=== PATIENT | male | born 1950 | race Caucasian/White ===

== ENCOUNTER → 2022-07-08 10:56 | Outpatient (BNVA) | payer MEDICARE, BC, SELFPAY | PROVIDERS: PCP Internal Medicine; Visit Provider Psychiatry & Neurology Psychiatry | DX: F31.81 Bipolar II disorder (principal); Z63.0 Problems in relationship with spouse or partner; Z95.1 Presence of aortocoronary bypass graft | CPT/HCPCS: 99212 ==

== ENCOUNTER → 2022-09-16 12:14 | Outpatient (BNVA) | payer MEDICARE, BC, SELFPAY | PROVIDERS: Visit Provider Psychiatry & Neurology Psychiatry | DX: F31.81 Bipolar II disorder (principal) | CPT/HCPCS: 90833; 99212 ==

== ENCOUNTER → 2022-11-13 13:35 | Outpatient (BNVA) | payer MEDICARE, BC, SELFPAY | PROVIDERS: Visit Provider Psychiatry & Neurology Psychiatry | DX: F31.81 Bipolar II disorder (principal); F10.21 Alcohol dependence, in remission; Z95.1 Presence of aortocoronary bypass graft | CPT/HCPCS: 90833; 99212 ==

== ENCOUNTER 2023-02-03 11:50 | Outpatient (AMB) | payer MEDICARE, BC, SELFPAY ==
--- NOTE | 2023-02-03 12:22 | MHC.OFFVISPS ---
Intake Intake Visit Reasons: Management of bipolar disorder, depression, Marital stress Allergies lorazepam Adverse Reaction (Intermediate, Verified 11/13/22 13:48) Agitated HPI- Psychiatric Chief Complaint: Management of bipolar disorder, depression, Marital stress HPI Narrative: Pt has generally been doing pretty well had emotional fight with yesterday on their anniversary Patient has chronic interpersonal issues with his the can lead to depressive symptoms there is a history of bipolar 2 history of rumination and anxiety the patient felt that he may have had some mild hypomanic period. Reports periods of perhaps mild dysphoria some working attentional problems since bypass surgery questionable hypomania not very clear regarding symptoms Past Psychiatric History: History of bipolar disorder was on lithium and Trileptal previously Mental Status Exam Mental Status Exam Narrative: Mental Status Exam Narrative: Appearance: Casually dressed Behavior: Cooperative appropriate psychomotor: Within normal limits Speech: Normal volume and prosody Thought proccess logical and goal-directed Thought content: Future oriented focused on issues related to his Mood: mild anxiety Affect: Appropriate to mood some anxiety rumination SI:denies HI:denies VH/AH:none Delusions: None Insight/judgment: Tends to downplay medical issues pituitary macroadenoma noted Memory/cog: Intact Assessment and Plan Assessment & Plan (1) Bipolar 2 disorder, major depressive episode: Status: Acute Code(s): F31.81 - Bipolar II disorder (2) Status post coronary artery bypass graft: Status: Acute Code(s): Z95.1 - Presence of aortocoronary bypass graft (3) Stress due to marital problems: Code(s): Z63.0 - Problems in relationship with spouse or partner (4) Cognitive impairment: Status: Acute Code(s): R41.89 - Other symptoms and signs involving cognitive functions and awareness (5) Hypertension: Status: Acute Code(s): I10 - Essential (primary) hypertension (6) Coronary artery disease: Status: Acute Code(s): I25.10 - Atherosclerotic heart disease of [place] coronary artery without angina pectoris (7) Pituitary macroadenoma: Status: Acute Code(s): D35.2 - Benign neoplasm of pituitary gland (8) Hyperlipidemia: Status: Acute Code(s): E78.5 - Hyperlipidemia, unspecified Plan Encourage patient to follow-up with medical issues might benefit from neuropsych evaluation but should definitely have Neurology follow-up pituitary macroadenoma some small lacunar infarct noted on MRI mild cognitive impairment might be related to bypass surgery executive functioning next and general memory seem intact could be seen by Dr. Gutierrez for more extensive neuropsych eval unclear if patient has had further workup for adenoma consider restarting small dose of oxcarbazepine at bedtime would need to follow sodium Orders: Orders Lamotrigine Lamictal 02/03/23 F31.81 - Bipolar II disorder, R41.89 - Other symptoms and signs involving cognitive functions and awareness, Z95.1 - Presence of aortocoronary bypass graft Comprehensive [place]. Panel Fast 02/03/23 F31.81 - Bipolar II disorder, R41.89 - Other symptoms and signs involving cognitive functions and awareness, Z95.1 - Presence of aortocoronary bypass graft Vitamin B12 and Folate 02/03/23 F3.81 - Bipolar II disorder, R41.89 - Other symptoms and signs involving cognitive functions and awareness, Z95.1 - Presence of aortocoronary bypass graft Complete Blood Count Auto Diff 02/03/23 F31.81 - Bipolar II disorder, R41.89 - Other symptoms and signs involving cognitive functions and awareness, Z95.1 - Presence of aortocoronary bypass graft Erythrocyte Sedimentation Rate 02/03/23 F31.81 - Bipolar II disorder, R41.89 - Other symptoms and signs involving cognitive functions and awareness, Z95.1 - Presence of aortocoronary bypass graft Lyme IgG/IgM w/reflex to WB 02/03/23 F31.81 - Bipolar II disorder, R41.89 - Other symptoms and signs involving cognitive functions and awareness, Z95.1 - Presence of aortocoronary bypass graft Prolactin Today D35.2 - Benign neoplasm of pituitary gland, F31.81 - Bipolar II disorder, R41.89 - Other symptoms and signs involving cognitive functions and awareness TSH reflex Free T4 Today D35.2 - Benign neoplasm of pituitary gland, F31.81 - Bipolar II disorder, R41.89 - Other symptoms and signs involving cognitive functions and awareness Counseling and coordination of Care Details: I spent [] minutes reviewing the record, seeing the patient and documenting in the medical record. Counseling provided to the patient/caregiver as outlined below. Addressed patient/caregiver concerns regarding current medication regime including effective adherence. Addressed patient/caregiver concerns regarding diagnosis and prognosis including accuracy of diagnosis, prognosis over time, impact of diagnosis. Addressed patient/caregiver concerns regarding impact of recent stressors. 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
== END 2023-02-03 14:20 | disposition home or self-care (01) ==
LOC: HO.HOP 11:50
PROVIDERS: PCP Nurse Practitioner Primary Care; Visit Provider Psychiatry & Neurology Psychiatry
DX: F31.81 Bipolar II disorder (principal); Z95.1 Presence of aortocoronary bypass graft; Z63.0 Problems in relationship with spouse or partner; R41.89 Other symptoms and signs involving cognitive functions and awareness; I10 Essential (primary) hypertension; I25.10 Atherosclerotic heart disease of native coronary artery without angina pectoris; D35.2 Benign neoplasm of pituitary gland; E78.5 Hyperlipidemia, unspecified
CPT/HCPCS: 90833; 99213

== ENCOUNTER → 2023-02-03 11:50 | Outpatient (BNVA) | payer MEDICARE, BC, SELFPAY | PROVIDERS: PCP Nurse Practitioner Primary Care; Visit Provider Psychiatry & Neurology Psychiatry | DX: F31.81 Bipolar II disorder (principal); R41.89 Other symptoms and signs involving cognitive functions and awareness; Z63.0 Problems in relationship with spouse or partner; I10 Essential (primary) hypertension; I25.10 Atherosclerotic heart disease of native coronary artery without angina pectoris; D35.2 Benign neoplasm of pituitary gland; E78.5 Hyperlipidemia, unspecified; Z95.1 Presence of aortocoronary bypass graft | CPT/HCPCS: 90833; 99212 ==

== ENCOUNTER 2023-03-04 11:19 | Outpatient (AMB) | payer MEDICARE, BC, SELFPAY ==
--- NOTE | 2023-04-23 16:11 | A.OFFPSYCH_ITS ---
Intake Intake Visit Reasons: cognitive testing Allergies lorazepam Adverse Reaction (Intermediate, Verified 11/13/22 13:48) Agitated HPI- Psychiatric Chief Complaint: cognitive testing HPI Narrative: The patient is a 73-year-old male history of bipolar disorder recent history question of some hypomania had been drinking at bedtime despite recommendations to not drink alcohol. Patient has described periods of mild word-finding difficulty and difficulty at times with short-term memory the patient did have bypass over the past year a also on MRI history of macroadenoma Past Psychiatric History: History of bipolar disorder was on lithium and Trileptal previously Mental Status Exam Mental Status Exam Narrative: Mental Status Exam Narrative: Appearance: Casually dressed Behavior: Cooperative appropriate psychomotor: Within normal limits Speech: Normal volume and prosody Thought proccess logical and goal-directed Thought content: Future oriented focused on issu Mood: mild anxiety and dysphoria Affect: Appropriate to mood some anxiety rumination SI:denies HI:denies VH/AH:none Delusions: None Insight/judgment: Tends to downplay medical issues pituitary macroadenoma Memory/cog: No gross abn on testing Assessment and Plan Assessment & Plan (1) Bipolar 2 disorder, major depressive episode: Status: Acute Code(s): F31.81 - Bipolar II disorder (2) Pituitary macroadenoma: Status: Acute Code(s): D35.2 - Benign neoplasm of pituitary gland (3) Hypertension: Status: Acute Code(s): I10 - Essential (primary) hypertension (4) Cognitive impairment: Status: Acute Code(s): R41.89 - Other symptoms and signs involving cognitive functions and awareness (5) Status post coronary artery bypass graft: Status: Acute Code(s): Z95.1 - Presence of aortocoronary bypass graft Plan Will consider further neuropsych testing question Jean cognitive question need for referral. Patient status post coronary artery bypass graft surgery also has but to a Thuy adenoma unclear levels and affect. Need further information Lamictal had been increased to 150 b.i.d. avoid alcohol use reportedly B12 folate TSH are within normal limits. Counseling and coordination of Care Pt. Self Management counseling: Breathing and Mod caffeine/ETOH intake Details-Self Mgmt counseling: Also discussed issues related to chronic dissatisfaction his relationship with his he tends to be a intellectualized she tends to have more emotional reasoning feels overwhelmed at times Medication management counseling: Effectiveness Diagnosis and Prognosis Counseling: Accuracy of diagnosis, Impact of diagnosis on life functions, Problematic behaviors secondary to diagnosis and Adequacy of current interventions Details: I spent [35] minutes reviewing the record, seeing the patient and documenting in the medical record. Counseling provided to the patient/caregiver as outlined below. Addressed patient/caregiver concerns regarding current medication regime including effective adherence. Addressed patient/caregiver concerns regarding diagnosis and prognosis including accuracy of diagnosis, prognosis over time, impact of diagnosis. Addressed patient/caregiver concerns regarding impact of recent stressors. 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
== END 2023-03-04 14:39 | disposition home or self-care (01) ==
LOC: HO.HOP 11:19
PROVIDERS: PCP Nurse Practitioner Primary Care; Visit Provider Psychiatry & Neurology Psychiatry
DX: F31.81 Bipolar II disorder (principal); D35.2 Benign neoplasm of pituitary gland; I10 Essential (primary) hypertension; R41.89 Other symptoms and signs involving cognitive functions and awareness; Z95.1 Presence of aortocoronary bypass graft
CPT/HCPCS: 99214

== ENCOUNTER → 2023-03-04 11:19 | Outpatient (BNVA) | payer MEDICARE, BC, SELFPAY | PROVIDERS: PCP Nurse Practitioner Primary Care; Visit Provider Psychiatry & Neurology Psychiatry | DX: F31.81 Bipolar II disorder (principal); R41.89 Other symptoms and signs involving cognitive functions and awareness; D35.1 Benign neoplasm of parathyroid gland; I10 Essential (primary) hypertension; Z95.1 Presence of aortocoronary bypass graft | CPT/HCPCS: 99212 ==

== ENCOUNTER 2023-07-11 12:38 | Outpatient (REF) | payer MEDICARE, BC, SELFPAY ==
[2023-07-11 14:48] LABS: Alanine Aminotransferase 41 U/L (0-40); Albumin Level 4.6 g/dL (3.5-5.0); Alkaline Phosphatase 61 U/L (39-117); Anion Gap 14 (12-20); Aspartate Amino Transferase 45 U/L (5-37); Bilirubin Total 0.7 mg/dL (0.0-1.0); Blood Urea Nitrogen 21 mg/dL (9-16); Calcium 9.7 mg/dL (8.4-10.2); Carbon Dioxide 26 mmol/L (22-29); Chloride 107 mmol/L (96-108); Estimated Glomerular Filt Rate 51; Glucose Random 97 mg/dL (60-115); Potassium 3.7 mmol/L (3.3-5.1); Sodium 143 mmol/L (135-145); Total Protein 7.8 g/dL (6.5-8.0)
== END 2023-07-11 12:39 | disposition home or self-care (01) ==
LOC: HO.LAB 12:38
PROVIDERS: PCP Nurse Practitioner Primary Care; Visit Provider Psychiatry & Neurology Psychiatry
DX: R41.89 Other symptoms and signs involving cognitive functions and awareness (principal)
CPT/HCPCS: 36415; 80053

== ENCOUNTER 2023-09-19 11:23 | Outpatient (AMB) | payer MEDICARE, BC, SELFPAY ==
--- NOTE | 2023-09-19 12:22 | A.OFFPSYCH_ITS ---
Intake Intake Visit Reasons: depression Allergies lorazepam Adverse Reaction (Intermediate, Verified 11/13/22 13:48) Agitated HPI- Psychiatric Chief Complaint: depression HPI Narrative: Patient seen psychiatric follow-up. Has had some interim difficulty with short- term memory at times driving that is uncharacteristic of him generally. Patient's has been quite concerned he need also recently had a interaction in which his felt quite not taking care by him. They have some degree of chronic discord he tends to be more intellectualized his tends to be more of an emotional thinker least according to the patient Past Psychiatric History: History of bipolar disorder was on lithium and Trileptal previously Mental Status Exam Mental Status Exam Narrative: Mental Status Exam Narrative: Appearance: Casually dressed Behavior: Cooperative appropriate psychomotor: Within normal limits Speech: Normal volume and prosody Thought proccess logical and goal-directed Thought content: focused on conflictual issues with his and recent diffi culties he had driving and memory He is also preoccupied feeling frequently criticized Mood: mild anxiety and dysphoria Affect: Appropriate to mood some anxiety rumination SI:denies HI:denies VH/AH:none Delusions: None Insight/judgment: Tends to downplay medical issues pituitary macroadenoma Memory/cog: No gross abn on testing Assessment and Plan Assessment & Plan (1) Bipolar 2 disorder, major depressive episode: Status: Acute Code(s): F31.81 - Bipolar II disorder (2) Coronary artery disease: Status: Acute Code(s): I25.10 - Atherosclerotic heart disease of [place] coronary artery without angina pectoris (3) Cognitive impairment: Status: Acute Code(s): R41.89 - Other symptoms and signs involving cognitive functions and awareness Plan Try and taper down on clonazepam may be i nterfering with encoding of memory interfering when driving perhaps with working attention at times try and discontinue daytime clonazepam continue Wellbutrin and Lamictal Extensive discussion regarding risk factors for dementia including vascular, d iabetes, smoking, alcohol hypertension and vitamin deficiencies recommended neuropsych testing again Patient's current difficulties may be related to marital stress with frequent criticism and cognitive impairment that became observable status post coronary bypass Continue Lamictal 150 b.i.d. Wellbutrin 100 mg daily try and taper down on clonazepam currently a 0.5 b.i.d. lowered is 0.25 in the morning 0.5 bedtime continue gradual taper Medications: Changed From clonazepam 0.5 mg PO BID 60 tabs 2RF To clonazepam o.25 am prn 0.5 hs 0.25 - 0.5 mg (0.5 - 1 x 0.5 mg) PO BID 60 tabs 2RF Counseling and coordination of Care Details-Self Mgmt counseling: Issues related to concerns regarding cognition and management and issues related to chronic stress and anxiety in his marriage discussed ways to approach someone who is speaking a an emotional level Medication management counseling: Effectiveness and Side effects Diagnosis and Prognosis Counseling: Accuracy of diagnosis and Problematic behaviors secondary to diagnosis Details: I spent [40] minutes reviewing the record, seeing the patient and documenting in the medical record. Counseling provided to the patient/caregiver as outlined below. Addressed patient/caregiver concerns regarding current medication regime including effective adherence. Addressed patient/caregiver concerns regarding diagnosis and prognosis including accuracy of diagnosis, prognosis over time, impact of diagnosis. Addressed patient/caregiver concerns regarding impact of recent stressors. 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
== END 2023-09-19 12:11 | disposition home or self-care (01) ==
LOC: HO.HOP 11:23
PROVIDERS: PCP Nurse Practitioner Primary Care; Visit Provider Psychiatry & Neurology Psychiatry
DX: F31.81 Bipolar II disorder (principal); I25.10 Atherosclerotic heart disease of native coronary artery without angina pectoris; R41.89 Other symptoms and signs involving cognitive functions and awareness
CPT/HCPCS: 90833; 99213

== ENCOUNTER → 2023-09-19 11:23 | Outpatient (BNVA) | payer MEDICARE, BC, SELFPAY | PROVIDERS: PCP Nurse Practitioner Primary Care; Visit Provider Psychiatry & Neurology Psychiatry | DX: F31.81 Bipolar II disorder (principal); I25.10 Atherosclerotic heart disease of native coronary artery without angina pectoris; R41.89 Other symptoms and signs involving cognitive functions and awareness | CPT/HCPCS: 99212 ==

== ENCOUNTER 2023-11-06 12:01 | Outpatient (AMB) | payer MEDICARE, BC, SELFPAY ==
--- NOTE | 2023-11-06 12:50 | MHC.OFFVISPS ---
Intake Intake Visit Reasons: depression Allergies lorazepam Adverse Reaction (Intermediate, Verified 11/13/22 13:48) Agitated Medication List - Last Reconciled 11/06/23 by Nnamdi Ibarra MD atorvastatin 80 mg PO DAILY bupropion HCl SR (Wellbutrin SR) 100 mg PO QAM clonazepam orally 2 times a day; o.25 am prn anxiety/ 0.5 hs 90 days ezetimibe 10 mg PO DAILY lamotrigine (Lamictal) 150 mg PO BID lamotrigine 150 mg PO BID 90 days Lmefol [id number] 6 mg-600 mg- 2 mg-90.314 mg (Cerefolin NAC (algal oil)) 1 tab PO DAILY metoprolol tartrate 50 mg PO BID mirabegron ER (Myrbetriq) 50 mg PO DAILY pantoprazole 40 mg PO DAILY HPI- Psychiatric Chief Complaint: depression HPI Narrative: Patient has generally been doing okay does tend toward rumination difficulty chronically with on emotional interplay versus using logic and both seem to trigger each other and missed each other. His children have been intervening to some degree this appears to have been helpful neuropsych testing reviewed no marked abnormalities patient has not been using CPAP no gross changes in functioning or mood no alcohol use has tapered down on clonazepam generally not using during the day only 0.5 mg at bedtime continues on Wellbutrin Lamictal Past Psychiatric History: History of bipolar disorder was on lithium and Trileptal previously Mental Status Exam Mental Status Exam Narrative: Mental Status Exam Narrative: Appearance: Casually dressed Behavior: Cooperative appropriate psychomotor: Within normal limits Speech: Normal volume and prosody Thought proccess logical and goal-directed Thought content: focused on conflictual issues with his but feels they are improving children have been helping Mood: mild anxiety and dysphoria Affect: Appropriate to mood some anxiety SI:denies HI:denies VH/AH:none Delusions: None Insight/judgment: Difficulty seeing how he comes across to his and necessity of dealing with medical concerns Memory/cog: No gross abn in evaluation alert and oriented logical Results Reviewed Results Reviewed: Reviewed neuropsych testing with patient see upload Assessment and Plan Assessment & Plan (1) Bipolar 2 disorder, major depressive episode: Status: Acute Code(s): F31.81 - Bipolar II disorder (2) Cognitive impairment: Status: Acute Code(s): R41.89 - Other symptoms and signs involving cognitive functions and awareness (3) Vitamin D deficiency, unspecified: Status: Acute Code(s): E55.9 - Vitamin D deficiency, unspecified (4) Hyperlipidemia: Status: Acute Code(s): E78.5 - Hyperlipidemia, unspecified Plan Patient's case reviewed neuropsychology they did feel that much of his difficulty might relate to post bypass cognitive issues. His children have been helpful in helping patient manage chronic issues with his trying to find a more constructive way to log. Patient has not been getting lost or driving erratically or unstable early reportedly did discuss the impact of untreated sleep apnea and periods of low oxygen at night which may be contributing to cognitive issues. Discussed the possibility an apple watch or other oxygen monitoring device when asleep and to strongly consider targeting sleep apnea which can be a significant contributing factor to both heart disease and cognitive issues. Discussed use of Cerefolin which was recommended by neuro psychology continue did try and taper down on clonazepam check lipid panel Homocystine vitamin-D methylmalonic acid start Cerefolin which may help with cognitive protective health in a with mood Patient's cognitive and emotional style does not jive well with his 's who tends to have more of an emotional style try to review this patient's just and made Medications: New Lmefol [id number]-algal 6 mg-600 mg- 2 mg-90.314 mg (Cerefolin NAC (algal oil)) 1 tab PO DAILY 90 tabs 1RF Changed From clonazepam o.25 am prn 0.5 hs 0.25 - 0.5 mg (0.5 - 1 x 0.5 mg) PO BID 60 tabs 2RF To clonazepam orally 2 times a day; o.25 am prn anxiety/ 0.5 hs 135 tabs 1RF 90 days Orders: Orders Vitamin D 25-OH (D2 and D3) 11/06/23 R41.89 - Other symptoms and signs involving cognitive functions and awareness, E55.9 - Vitamin D deficiency, unspecified Lipid Panel 11/06/23 E78.5 - Hyperlipidemia, unspecified Homocysteine 11/06/23 R41.89 - Other symptoms and signs involving cognitive functions and awareness, E55.9 - Vitamin D deficiency, unspecified Methylmalonic Acid 11/06/23 R41.89 - Other symptoms and signs involving cognitive functions and awareness, E55.9 - Vitamin D deficiency, unspecified Counseling and coordination of Care Diagnosis and Prognosis Counseling: Impact of diagnosis on life functions and Adequacy of current interventions Details: I spent [50] minutes reviewing the record, seeing the patient and documenting in the medical record. Counseling provided to the patient/caregiver as outlined below. Addressed patient/caregiver concerns regarding current medication regime including effective adherence. Addressed patient/caregiver concerns regarding diagnosis and prognosis including accuracy of diagnosis, prognosis over time, impact of diagnosis. Addressed patient/caregiver concerns regarding impact of recent stressors. 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
--- NOTE | 2023-11-07 12:09 | A.OFFPSYCH_ITS ---
Intake Intake Visit Reasons: depression Allergies lorazepam Adverse Reaction (Intermediate, Verified 11/13/22 13:48) Agitated Medication List - Last Reconciled 11/06/23 by Nnamdi Ibarra MD atorvastatin 80 mg PO DAILY bupropion HCl SR (Wellbutrin SR) 100 mg PO QAM clonazepam orally 2 times a day; o.25 am prn anxiety/ 0.5 hs 90 days ezetimibe 10 mg PO DAILY lamotrigine (Lamictal) 150 mg PO BID lamotrigine 150 mg PO BID 90 days Lmefol Qg-hybosn-jiF78-algal 6 mg-600 mg- 2 mg-90.314 mg (Cerefolin NAC (algal oil)) 1 tab PO DAILY metoprolol tartrate 50 mg PO BID mirabegron ER (Myrbetriq) 50 mg PO DAILY pantoprazole 40 mg PO DAILY HPI- Psychiatric Chief Complaint: depression HPI Past Psychiatric History: History of bipolar disorder was on lithium and Trileptal previously Assessment and Plan Assessment & Plan Medications: New Lmefol Bc-zofyhv-icN34-algal 6 mg-600 mg- 2 mg-90.314 mg (Cerefolin NAC (algal oil)) 1 tab PO DAILY 90 tabs 1RF Changed From clonazepam o.25 am prn 0.5 hs 0.25 - 0.5 mg (0.5 - 1 x 0.5 mg) PO BID 60 tabs 2RF To clonazepam orally 2 times a day; o.25 am prn anxiety/ 0.5 hs 135 tabs 1RF 90 days Orders: Orders Vitamin D 25-OH (D2 and D3) 11/06/23 R41.89 - Other symptoms and signs involving cognitive functions and awareness, E55.9 - Vitamin D deficiency, unspecified Lipid Panel 11/06/23 E78.5 - Hyperlipidemia, unspecified Homocysteine 11/06/23 R41.89 - Other symptoms and signs involving cognitive functions and awareness, E55.9 - Vitamin D deficiency, unspecified Methylmalonic Acid 11/06/23 R41.89 - Other symptoms and signs involving cognitive functions and awareness, E55.9 - Vitamin D deficiency, unspecified Counseling and coordination of Care Details: I spent [] minutes reviewing the record, seeing the patient and documenting in the medical record. Counseling provided to the patient/caregiver as outlined below. Addressed patient/caregiver concerns regarding current medication regime including effective adherence. Addressed patient/caregiver concerns regarding diagnosis and prognosis including accuracy of diagnosis, prognosis over time, impact of diagnosis. Addressed patient/caregiver concerns regarding impact of recent stressors. 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
== END 2023-11-06 14:42 | disposition home or self-care (01) ==
LOC: HO.HOP 12:01
PROVIDERS: PCP Nurse Practitioner Primary Care; Visit Provider Psychiatry & Neurology Psychiatry
DX: F31.81 Bipolar II disorder (principal); R41.89 Other symptoms and signs involving cognitive functions and awareness; E55.9 Vitamin D deficiency, unspecified; E78.5 Hyperlipidemia, unspecified
CPT/HCPCS: 90833; 99213

== ENCOUNTER 2023-11-06 12:01 | Outpatient (REF) | payer MEDICARE, BC, SELFPAY ==
[2023-11-06 13:57] LABS: Cholesterol 134 mg/dL (<200); HDL Cholesterol 46 mg/dL (>40); LDL Cholesterol Calculated 67 mg/dL (<100); Triglycerides 108 mg/dL (<150)
[2023-11-07 17:33] LABS: Homocysteine 14.8 umol/L (<11.4)
[2023-11-10 14:09] LABS: Vitamin D 25-OH, D2 <4 ng/mL; Vitamin D 25-OH, D3 40 ng/mL; Vitamin D 25-OH, Total 40 ng/mL (30-100)
[2023-11-10 17:57] LABS: Methylmalonic Acid 214 nmol/L (87-318)
== END 2023-11-06 12:02 | disposition home or self-care (01) ==
LOC: HO.LAB 12:01
PROVIDERS: PCP Nurse Practitioner Primary Care; Visit Provider Psychiatry & Neurology Psychiatry
DX: R41.89 Other symptoms and signs involving cognitive functions and awareness (principal); E55.9 Vitamin D deficiency, unspecified; E78.5 Hyperlipidemia, unspecified; F31.81 Bipolar II disorder
CPT/HCPCS: 36415; 80061; 82306; 83090; 83921; 99212

== ENCOUNTER 2024-03-12 10:31 | Outpatient (AMB) | payer MEDICARE, BC, SELFPAY ==
--- NOTE | 2024-03-12 10:39 | A.OFFPSYCH_ITS ---
Intake Intake Visit Reasons: Depression Allergies lorazepam Adverse Reaction (Intermediate, Verified 11/13/22 13:48) Agitated HPI- Psychiatric Chief Complaint: Depression HPI Narrative: Pt is a 74 yo male hx of bipolar dx continues to have difficulty in relationship with here feels not seen in the level of despair between the 2 of them has recently been escalating. There has even been talk of divorce. Patient tends to be on emotional not revealing his internal life might be autistic spectrum his tends to be according to the patient much more emotionally reactive and hot headed. They have been in couples counseling in the past which reportedly was not helpful unclear was targeting the above interaction Patient has been on Wellbutrin Lamictal very low-dose clonazepam no confusional states no altered driving episode. Past Psychiatric History: History of bipolar disorder was on lithium and Trileptal previously Mental Status Exam Mental Status Exam Narrative: Mental Status Exam Narrative: Appearance: Casually dressed Behavior: Cooperative appropriate psychomotor: Within normal limits Speech: Normal volume and prosody Thought proccess logical and goal-directed Thought content: focused on conflictual issues with his ongoing Mood: anxiety and depressive sx Affect: Appropriate to mood some anxiety SI:denies HI:denies VH/AH:none Delusions: None Insight/judgment: unclear regarding marriage and approaches toward his Memory/cog: No gross abn in evaluation alert and oriented logical Assessment and Plan Assessment & Plan (1) Bipolar 2 disorder, major depressive episode: Status: Acute Code(s): F31.81 - Bipolar II disorder Plan generally only takes klonapin hs no confusional states phq 9 5 but pt has periods of dysphoria discussed couples tx focused on empathycont on wellbutrin lamictal consider vraylar Medications: Changed From clonazepam orally as directed; 0.25 mg am prn anxiety/ 0.5 hs 90 days 135 tabs 1RF To clonazepam 0.25 mg (1/2 x 0.5 mg) PO BID 90 days 90 tabs 1RF Counseling and coordination of Care Details-Self Mgmt counseling: issues in the marriage Medication management counseling: Effectiveness and Side effects Diagnosis and Prognosis Counseling: Adequacy of current interventions Details: I spent 38] minutes reviewing the record, seeing the patient and documenting in the medical record. Counseling provided to the patient/caregiver as outlined below. Addressed patient/caregiver concerns regarding current medication regime including effective adherence. Addressed patient/caregiver concerns regarding diagnosis and prognosis including accuracy of diagnosis, prognosis over time, impact of diagnosis. Addressed patient/caregiver concerns regarding impact of recent stressors. 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
== END 2024-03-12 11:07 | disposition home or self-care (01) ==
LOC: HO.HOP 10:31
PROVIDERS: PCP Nurse Practitioner Primary Care; Visit Provider Psychiatry & Neurology Psychiatry
DX: F31.81 Bipolar II disorder (principal)
CPT/HCPCS: 90833; 99213

== ENCOUNTER → 2024-03-12 10:31 | Outpatient (BNVA) | payer MEDICARE, BC, SELFPAY | PROVIDERS: PCP Nurse Practitioner Primary Care; Visit Provider Psychiatry & Neurology Psychiatry | DX: F31.81 Bipolar II disorder (principal) | CPT/HCPCS: 99212 ==

== ENCOUNTER 2024-06-21 13:33 | Outpatient (AMB) | payer MEDICARE, BC, SELFPAY ==
--- NOTE | 2024-06-21 14:27 | A.OFFPSYCH_ITS ---
Intake Intake Visit Reasons: Depression Allergies lorazepam Adverse Reaction (Intermediate, Verified 11/13/22 13:48) Agitated Medication List - Last Reconciled 06/21/24 by Nnamdi Ibarra MD atorvastatin 80 mg PO DAILY bupropion HCl SR 100 mg PO DAILY 90 days clonazepam 0.25 mg (1/2 x 0.5 mg) PO BID 90 days ezetimibe 10 mg PO DAILY lamotrigine (Lamictal) 150 mg PO BID lamotrigine 150 mg PO BID 90 days Lmefol [id number]-[id number]-algal 6 mg-600 mg- 2 mg-90.314 mg (Cerefolin NAC (algal oil)) 1 tab PO DAILY metoprolol tartrate 50 mg PO BID mirabegron ER (Myrbetriq) 50 mg PO DAILY pantoprazole 40 mg PO DAILY HPI- Psychiatric Chief Complaint: Depression HPI Narrative: Pt seen in f/u generally has been doing ok repeat psych testing was not changed . Pt takes some klon at hs wellbutrin lamictal had recommended cerefolin. Mood stable not overly depressed or manic. PHQ( HUGO unremarkable . Concerns about his son with adhd Past Psychiatric History: History of bipolar disorder was on lithium and Trileptal previously Mental Status Exam Mental Status Exam Narrative: Mental Status Exam Narrative: Appearance: Casually dressed Behavior: Cooperative appropriate psychomotor: Within normal limits Speech: Normal volume and prosody Thought proccess logical and goal-directed Thought content: focused on tx and issues with his son and anxiety re his future Mood: anxiety and depressive sx Affect: Appropriate to mood some anxiety SI:denies HI:denies VH/AH:none Delusions: None Insight/judgment:better insight into cognitive style lack of emotional mirroring Memory/cog: No gross abn in evaluation alert and oriented logical Assessment and Plan Assessment & Plan (1) Bipolar 2 disorder, major depressive episode: Status: Acute Code(s): F31.81 - Bipolar II disorder (2) Generalized anxiety disorder: Status: Acute Code(s): F41.1 - Generalized anxiety disorder Plan pt has generally been stable on present regimen on cerefolin cont lamictal and wellbutrin f/u 2-3 months Medications: Changed From clonazepam 0.25 mg (1/2 x 0.5 mg) PO BID 90 days 90 tabs 1RF To clonazepam 0.5 mg PO BEDTIME 30 tabs 2RF 30 days Refilled lamotrigine 150 mg PO BID 180 tabs 1RF 90 days bupropion HCl SR 100 mg PO DAILY 90 tabs 1RF 90 days Discontinued lamotrigine Discontinued Reason: Duplicate 150 mg PO BID 14 tabs 0RF Counseling and coordination of Care Details-Self Mgmt counseling: issues related to boundaries problemsolving in family and upset when not followed Details: I spent [39] minutes reviewing the record, seeing the patient and documenting in the medical record. Counseling provided to the patient/caregiver as outlined below. Addressed patient/caregiver concerns regarding current medication regime including effective adherence. Addressed patient/caregiver concerns regarding diagnosis and prognosis including accuracy of diagnosis, prognosis over time, impact of diagnosis. Addressed patient/caregiver concerns regarding impact of recent stressors. 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
== END 2024-06-21 13:38 | disposition home or self-care (01) ==
LOC: HO.HOP 13:33
PROVIDERS: PCP Nurse Practitioner Primary Care; Visit Provider Psychiatry & Neurology Psychiatry
DX: F31.81 Bipolar II disorder (principal); F41.1 Generalized anxiety disorder
CPT/HCPCS: 90833; 99213

== ENCOUNTER → 2024-06-21 13:33 | Outpatient (BNVA) | payer MEDICARE, BC, SELFPAY | PROVIDERS: PCP Nurse Practitioner Primary Care; Visit Provider Psychiatry & Neurology Psychiatry | DX: F31.81 Bipolar II disorder (principal); F41.1 Generalized anxiety disorder; Z71.89 Other specified counseling | CPT/HCPCS: 99212 ==

== ENCOUNTER 2024-10-12 14:57 | Outpatient (AMB) | payer MEDICARE, BC, SELFPAY ==
--- NOTE | 2024-10-12 15:05 | A.OFFPSYCH_ITS ---
Intake Intake Visit Reasons: depression Allergies lorazepam Adverse Reaction (Intermediate, Verified 11/13/22 13:48) Agitated Medication List - Last Reconciled 10/12/24 by Nnamdi Ibarra MD atorvastatin 80 mg PO DAILY bupropion HCl SR 100 mg PO DAILY 90 days clonazepam 0.5 mg PO DIRECTED 90 days ezetimibe 10 mg PO DAILY lamotrigine 150 mg PO BID 90 days Lmefol Ar-[id number]-[id number]-algal 6 mg-600 mg- 2 mg-90.314 mg (Cerefolin NAC (algal oil)) 1 tab PO DAILY metoprolol tartrate 50 mg PO BID mirabegron ER (Myrbetriq) 50 mg PO DAILY pantoprazole 40 mg PO DAILY HPI- Psychiatric Chief Complaint: depression HPI Narrative: Pt seen in f/u mood has been ok getting along better with his . Son in [place] cont to be difficult with pts grandchildren . His at times has significant anxiety and can be critical or demanding to the pts perspective. He is concerned re her decreased fx over time. His cognition has been stable no recent car difficulty driving. Stable on wellbutrin lamictal klon 0.5 hs Rare occassional drink. Has been exercising regularly Past Psychiatric History: History of bipolar disorder was on lithium and Trileptal previously Mental Status Exam Mental Status Exam Narrative: Mental Status Exam Narrative: Appearance: Casually dressed Behavior: Cooperative appropriate psychomotor: Within normal limits Speech: Normal volume and prosody Thought proccess logical and goal-directed Thought content: focused on tx and issues with his family and 2 sons he has concerns Mood: good Affect: Appropriate to mood SI:denies HI:denies VH/AH:none Delusions: None Insight/judgment:better insight into cognitive style and contrast with his Memory/cog: No gross abn in evaluation alert and oriented logical Assessment and Plan Assessment & Plan (1) Generalized anxiety disorder: Status: Acute Code(s): F41.1 - Generalized anxiety disorder (2) Bipolar II disorder: Status: Acute Code(s): F31.81 - Bipolar II disorder Plan cont plan of care discussed trying to taper off klon secondary to possible cognitive damage cont lamictal wellbutrin Medications: Changed From clonazepam 0.5 mg PO BEDTIME 30 days 30 tabs 2RF To clonazepam 1/2-1 tab bedtime may take 1 tab daily as needed for panic attack 0.5 mg PO DIRECTED 90 days 100 tabs 1RF Refilled bupropion HCl SR 100 mg PO DAILY 90 days 90 tabs 1RF Counseling and coordination of Care Details-Self Mgmt counseling: issues related to family Diagnosis and Prognosis Counseling: Impact of diagnosis on life functions and Adequacy of current interventions Details: I spent [39] minutes reviewing the record, seeing the patient and documenting in the medical record. Counseling provided to the patient/caregiver as outlined below. Addressed patient/caregiver concerns regarding current medication regime including effective adherence. Addressed patient/caregiver concerns regarding diagnosis and prognosis including accuracy of diagnosis, prognosis over time, impact of diagnosis. Addressed patient/caregiver concerns regarding impact of recent stressors. 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
--- OUTSIDE RECORDS SUMMARY | 2024-10-12 18:38 | XMS_ITS | Clinical Summary ---
Author Organization [address] Address [address] [place] [address] Phone Care Team Providers Care Handbag Designer Name Role Phone Akiko Cantrell NP Primary Care Provider [phone] Medications atorvastatin (LIPITOR) 80 mg tablet TAKE 1 TABLET BY MOUTH EVERY DAY 90 tablet 07/28/2024 Active Encounters Date Type Department Care Team Description 10/07/2024 Telephone Internal Medicine - [address] [phone] Akiko Cantrell NP Referral (External [facility]: [facility] ) 09/09/2024 Telephone Internal Medicine - [address] [phone] Akiko Cantrell NP Referral 07/20/2024 Telephone [facility] - [facility] [address] [facility] [address] [place] [address] Sandy Maurer NP from Last 3 Months Surgical History Surgery Date Site/Laterality Comments OTHER SURGICAL HISTORY 2007 PROCEDURE: NE LAPS SURG [id number] RPBIC RAD W/NRV SPARING ROBOT OTHER SURGICAL HISTORY 2003 PROCEDURE: NE NASAL/SINUS NDSC W/PARTIAL ETHMOIDECTOMY TONSILLECTOMY PROCEDURE: HISTORICAL TONSILLECTOMY HERNIA REPAIR PROCEDURE: HISTORICAL HERNIA REPAIR/ING APPENDECTOMY PROCEDURE: HISTORICAL APPENDECTOMY Medical History Medical History Date Comments Essential hypertension DX:Essent ial hypertension Hyperlipidemia DX:Hyperlipidemi a Family history of cardiovasc ular disease DX:Family history of cardiov ascular disease Crescendo angina (CMS/HCC) 08/01/2021 DX:Cr escendo angina (HCC) Chronic kidney disease, stag e 3 (CMS/HCC) 09/30/2021 DX:Chronic kidney disease, s tage 3 (HCC) CAD (coronary artery disease) 09/30/2021 DX :CAD (coronary artery disease) MAGDI (obstructive sleep apnea) DX :MAGDI (obstructive sleep apnea) Prostate carcinoma DX:Prostate c arcinoma (HCC) Osteoarthritis DX:Osteoarthriti s Family History Medical History Relation Name Comments Coronary artery disease Father Lung disease Father Stroke Mother Hemorrhagic Sto ke, cause of Other: heart disease Other multipl e family members with heart disease Relation Name Status Comments Father Mother Other Social History Tobacco Use Types Packs/Day Years Used Date Smoking Tobacco: Never Smokeless Tobacco: Never Alcohol Use Standard Drinks/Week Comments Yes 1 (1 standard drink = 0.6 oz pur e alcohol) Sex and Gender Information Value Date Recorded Sex Assigned at Not on file Legal Sex Male 5:22 AM EST Gender Identity Not on file Sexual Orientation Not on file Obstetrics History Last Filed Vital Signs Vital Sign Reading Time Taken Comments Blood Pressure 126/78 11/14/2023 3:10 PM EDT A Pulse 72 11/14/2023 3:10 PM EDT Temperature - - Respiratory Rate - - Oxygen Saturation - - Inhaled Oxygen Concentration - - Weight 81.1 kg (178 lb 11.2 oz) 11/14/2023 3:10 PM EDT Height 170.2 cm (5' 7 ) 11/14/2023 3:10 PM EDT Body Mass Index 27.99 11/14/2023 3:10 PM EDT Plan of Treatment Health Maintenance Due Date Last Done Comments Cholesterol Screening (Lipid Panel) 06/29/2022 Colorectal Cancer Screening: Colonoscopy 06/29/2022 Depression Screening 06/29/2022 Falls Risk Assessment 06/29/2022 Hepatitis C Screening 06/29/2022 Medicare Annual Wellness Visit 06/29/2022 Social Influencers of Health Screening 06/29/2022 Hypertension/CHF/CAD Annual BMP Blood Test 06/30/2022 COVID-19 Vaccine (3 - Pfizer risk series) 05/31/2024 05/03/2024, 09/01/2023, 08/21/2023, Additional history exists DTaP,Tdap,and Td Vaccines (2 - Td or Tdap) 08/14/2027 08/14/2017 Zoster Vaccines Completed 12/19/2018, 10/01/2018 RSV Immunization Patients 60+ Years Old Completed 09/01/2023 Pneumococcal Vaccine: 50+ Years Completed 09/06/2023, 08/27/2018, 08/12/2017 Influenza Vaccine Completed 05/03/2024, , 07/17/2022, Additional history exists HIB Vaccines Aged Out No longer eligi ble based on patient's age to complete this topic HPV Vaccines Aged Out No longer eligi ble based on patient's age to complete this topic Hepatitis A Vaccines Aged Out No long er eligible based on patient's age to complete this topic Hepatitis B Vaccines Aged Out No long er eligible based on patient's age to complete this topic IPV Vaccines Aged Out No longer eligi ble based on patient's age to complete this topic MMR Vaccines Aged Out No longer eligi ble based on patient's age to complete this topic Meningococcal ACWY Vaccine Aged Out N o longer eligible based on patient's age to complete this topic Meningococcal B Vacine Aged Out No lo nger eligible based on patient's age to complete this topic RSV Immunization Patients Under 20 months Aged Out No longer eligible based on patient's age to complete this topic Varicella Vaccines Aged Out No longer eligible based on patient's age to complete this topic Insurance MEDICARE [facility] Care Teams Handbag Designer Relationship Specialty Start Date End Date Akiko Cantrell NP [address] [place] [address] PCP - General 08/09/22
--- OUTSIDE RECORDS SUMMARY | 2024-10-12 18:38 | XMS_ITS | Continuity of Care Document ---
Author Organization [facility] [employer] [address] [facility] [address] [place] [address] Phone [phone] Care Team Providers Care Machine Lead Burner Name Role Phone Eduin Johnston M.D. Care Team Information Receive r [phone] Problems Active Problems Provider Date Pituitary adenoma Yefri Perez M.D. Onset: 0 09/05/2022 Bipolar disorder Yefri Perez M.D. Onset: Gastroesophageal reflux disease Yefri Perez M.D. Onset: 09/05/2022 Hyperlipidemia Yefri Perez M.D. Onset: Carcinoma of prostate Yefri Perez M.D. Onse t: 09/05/2022 History of malignant neoplasm of prostate Yefri Perez M.D. Onset: 09/05/2022 Hypercholesterolemia Yefri Perez M.D. Onset : 09/05/2022 Social History Type Date Description Comments Sex Unknown ETOH Use Occasionally consumes wine Tobacco Use Start: Unknown Patient has never smoked Allergies and adverse reactions Active Allergies Criticality Reaction Severity Comments Date Ativan Unable to assess criticality 09/05/2022 Medications Active Medications SIG Qnty Indications Ordering Provider Date [id number] Tablets 1 tablet by mouth at 11 pm prior to blood work 1tachinmay Palacios M.D. 09/13/2024 [id number] Tablets Take 1 Tablet By Mouth Every Day Christian Walters M.D. [id number] Tablets Take 1 Tablet By Mouth Twice A Day Unknown Metoprolol Amarpwpp11fw Tablets Take 1 Tablet By Mouth Twice A Day Unknown Pantoprazole Ombmbt68sv Tablets DR Take 1 Tablet By Mouth Every Day Vinod Hyman M.D. Atorvastatin Uqccnvt35kb Tablets Take 1 Tablet By Mouth Every Day Unknown Clonazepam0.5mg Tablets Take 1 Tablet By Mouth Twice A Day. May Take Half A Tablet Daily as Needed For A Unknown Qkoqwfivj09kp Tablets ER 24HR 1 by mouth every day Edi Bonilla MD Vital Signs Date Vital Result Comment 09/07/2024 9:13am BP Systolic 120 mmHg BP Diastolic 76 mmHg Heart Rate 70 /min Height 67 inches 5'7 Weight 183.38 lb BMI (Body Mass Index) 28.7 kg/m2 Results Test Acquired Date Facility Test Result H/L Range Note Cortisol - Am 09/21/2024 [facility] Cortisol - Am 1.5 g /dL Low 6.2-19. 4 1 TSH 09/21/2024 [facility] TSH 1.990 uIU/mL 0.450-4 .500 Thyroxine (T4) Free, Direct 09/21/2024 [facility] Thyroxine (T4) Free, Direct 1.27 ng/dL 0.82-1. 77 Triiodothyronine (T3), Free 09/21/2024 [facility] Triiodothyronine (T3), Free 3.2 pg/mL 2.0-4.4 Testosterone F/Wklybd+T LC/MS 09/21/2024 [facility] Testosterone, Total, LC/MS 291.2 ng/dL 264.0-9 16.0 2 Testost., % Free+Weakly Bound 27.7 % 9.0-46. 0 3 Testost., F+W Bound 80.7 ng/dL 40.0-25 0.0 Dexamethasone, Serum 09/21/2024 [facility] Dexamethasone, Serum 447 ng/dL 4 FSH, Serum 09/21/2024 [facility] FSH 10.8 mIU/mL 1.5-12. 4 Luteinizing Hormone(LH) 09/21/2024 [facility] Luteinizing Hormone(LH) 10.1 mIU/mL High 1.7-8.6 Cortisol 09/05/2023 [facility] Cortisol 9.8 g /dL 5 Free T4 09/05/2023 [facility] Free T4 1.20 ng/dL (0.70-1 .80) TSH With Reflex To FT4 09/05/2023 [facility] TSH With Reflex To FT4 1.54 uIU/mL (0.4-4. 2) Free T4 10/31/2022 [facility] Free T4 1.14 ng/dL (0.70-1 .80) TSH 10/31/2022 [facility] TSH 2.17 uIU/mL (0.4-4. 2) Cortisol 10/31/2022 [facility] Cortisol 10.8 g /dL 6 Free Testosterone 10/31/2022 [facility] Testosterone, Total, LC/MS 300.6 7 Percent Free Testosterone 3.07 8 Free Testostero ne, Equilibrium 9.23 9 1 Test(s) 432831-[id number] sterone, Total, LC/MS was developed and its performance characteristics determined by [facility]. It has not been cleared or approved by the Food and Drug Administration. 2 This [facility] LC/MS-M S method is currently certified by the CDC Hormone Standardization Program (HoSt). Adult male reference interval is based on a population of healthy nonobese males (BMI <30) between 19 and 39 years old. Bart, et.al. JCEM 2017,102;0657-5273. PMID: 33551134. 3 This test was develo ped and its performance characteristics determined by [facility]. It has not been cleared or approved by the Food and Drug Administration. 4 This test was develo ped and its performance characteristics determined by [facility]. It has not been cleared or approved by the Food and Drug Administration. Reference Range: Adults baseline: <30 8:00 AM following 1 mg dexamethasone previous evenin - 295 8:00 AM following 8 mg dexamethasone (4 x 2 mg doses) previous day: 1600 - 2850 5 Reference Range: 6-10 am: 6.0-18.4 ug/dL 4-8 pm: 2.7-10.5 ug/dL 6 Reference Range: 6-10 am: 6.0-18.4 ug/dL 4-8 pm: 2.7-10.5 ug/dL 7 Reference range: 264 .0 to 916.0 Unit: ng/dL (NOTE) This [facility] LC/MS-MS method is currently certified by the CDC Hormone Standardization Program (HoSt). Adult male reference interval is based on a population of healthy nonobese males (BMI <30) between 19 and 39 years old. Bart et.al. JCEM 2017,102;1520-3032. PMID: 77321890. This test was developed and its performance characteristics determined by [facility]. It has not been cleared or approved by the Food and Drug Administration. 8 Reference range: 1.5 0 to 4.20 Unit: % 9 Reference range: 5.0 0 to 21.00 Unit: ng/dL Test performed at [address] [address] Medical Devices Description No Information Available Encounters Type Date Location Provider Dx Diagnosis Office Visit 09/07/2024 9:00a Main Office [facility] D35.2 Benign neopla sm of pituitary gland Assessments Date Code Description Provider 09/07/2024 D35.2 Pituitary adenoma D[facility]RELL Hauser Plan of Treatment Future Appointment(s):* 09/07/2025 9:15 am - [facility] at Main Office 09/05/2023 - Yefri Perez M.D.* D35.2 Pituitary adenoma * E78.00 Hypercholesterolemia * F31.9 Bipolar disorder * E78.5 Hyperlipidemia, unspecified * Z85.46 Personal history of malignant neoplasm of prostate Functional Status Description No Information Available Mental Status Description No Information Available Referrals Refer to Dr Reason for Referral Status Appt Yefri Ash M.D. Created [address] [place] [address] [address] [place] [address] [phone]
--- OUTSIDE RECORDS SUMMARY | 2024-10-12 18:38 | XMS_ITS | Encounter Summary ---
Author Organization [facility] Address [address] [place] [address] Care Team Providers Care Aircraft Navigator Name Role Phone Akiko Cantrell NP Primary Care Provider [phone] Reason for Referral * Consultation (Routine) - Pending Review Specialty Diagnoses / Procedures Referred By Pierre alvarado Referred To Contact Endocrinology Diagnoses Benign neoplasm of pituitary gland and craniopharyngeal duct (pouch) ([facility]) Akiko Cantrell NP [address] [place] [address] Phone: tel: fax: Referral ID Status Reason Start Date Expiration Date Visits Requested Visits Authorized [id number] Pending Review Specialty Services Required 10/07/2024 10/07/2025 1 1 Scheduling Instructions Is this a retro request? yes. If yes for what date of service do you need the retro referral? 09/07/2024 Who is calling to request this referral? Referral director of grants [facility] If the caller is not the patient, what is their name? Zoila Powell Ask the patient WHO referred them to this specialty: Patient was seen by external specialist Dr. Akanksha Palacios who has now referred them to this specialty FIRST and LAST NAME of SPECIALIST PATIENT is seeing: Akanksha Palacios MD What specialty is this? Endocrine DIAGNOSIS Patient is being seen for (Not a body part or a procedure): D35.2 Benign neoplasm of pituitary gland Have you seen this SPECIALIST for this PROBLEM/DX before? If YES, when? Yes. 09/07/24 Have you checked REVIEW or the APPT DESK to see if this referral has already been done or has visits left? yes Is this visit: Follow Up Address of Specialist: [address] [place] [address] Dr HERNANDEZ, [place] [address] Phone # of Specialist: [phone] Fax #: (if applicable): [phone] Does patient have an appointment scheduled?: yes Date of appointment- (including a retro-request): 09/07/24 and 09/07/25 Is this appointment related to: no Reason for Visit * Reason Onset Date Comments Referral 10/07/2024 External Referra l: [facility] Encounter Details Date Type Department Care Team (Late st Contact Info) Description 10/07/2024 [facility] [address] [place] [address] Akiko Cantrell NP [address] [place] [address] Referral (External Referral: [facility] ) Social History Tobacco Use Types Packs/Day Years Used Date Smoking Tobacco: Never Smokeless Tobacco: Never Alcohol Use Standard Drinks/Week Comments Yes 1 (1 standard drink = 0.6 oz pur e alcohol) Sex and Gender Information Value Date Recorded Sex Assigned at Not on file Legal Sex Male 5:22 AM EST Gender Identity Not on file Sexual Orientation Not on file documented as of this encounter Progress Notes * Marlene Martinez MA - 10/07/2024 2:34 PM EDT Last seen 11/14/23. Referral pended. * Eugene Dickson - 10/07/2024 2:22 PM EDT Referral Request: What insurance does the patient have today? BCBS [id number], [id number] Referrals cannot be processed if the insurance is not accurate. If the insurance listed above in red is NO BILLING INFORMATION FOUND FOR THIS ENCOUTNER The patients correct insurance must be obtained and registered in [facility] or their referral can not be processed. Is this a retro request? yes. If yes for what date of service do you need the retro referral? 09/07/2024 Who is calling to request this referral? Referral director of grants [facility] If the caller is not the patient, what is their name? Zoila Powell Ask the patient WHO referred them to this specialty: Patient was seen by external specialist Dr. Akanksha Palacios who has now referred them to this specialty FIRST and LAST NAME of SPECIALIST PATIENT is seeing: Akanksha Palacios MD What specialty is this? Endocrine DIAGNOSIS Patient is being seen for (Not a body part or a procedure): D35.2 Benign neoplasm of pituitary gland Have you seen this SPECIALIST for this PROBLEM/DX before? If YES, when? Yes. 09/07/24 Have you checked REVIEW or the APPT DESK to see if this referral has already been done or has visits left? yes Is this visit: Follow Up Address of Specialist: [address] [place] [address] Dr HERNANDEZ, [place] [address] Phone # of Specialist: [phone] Fax #: (if applicable): [phone] Does patient have an appointment scheduled?: yes Date of appointment- (including a retro-request): 09/07/24 and 09/07/25 Is this appointment related to: no documented in this encounter Plan of Treatment Scheduled Referrals Name Type Priority Associated Diagnoses Orde r Schedule Ambulatory referral to Endocrinology Outpatient Referral Routine Benign neoplasm of pituitary gland and craniopharyngeal duct (pouch) (CMS/HCC) 1 Occurrences starting 10/07/2024 until 10/07/2025 documented as of this encounter Visit Diagnoses Diagnosis Benign neoplasm of pituitary gland and craniopharyngeal duct (pouch) (CMS/HCC)- Primary Benign neoplasm of pituitary gland and craniopharyngeal duct (pouch) documented in this encounter Care Teams Aircraft Navigator Relationship Specialty Start Date End Date Akiko Cantrell NP [address] [place] [id number] PCP - General 08/09/22 documented as of this encounter
--- OUTSIDE RECORDS SUMMARY | 2024-10-12 18:38 | XMS_ITS | Clinical Summary ---
Author Organization [facility] Address [address] [place] [address] Care Team Providers Care Flumer Name Role Phone Unavailable Primary Care Provider Unavailabl e Social History Tobacco Use Types Packs/Day Years Used Date Smoking Tobacco: Never Assessed Sex and Gender Information Value Date Recorded Sex Assigned at Not on file Gender Identity Not on file Sexual Orientation Not on file Plan of Treatment Not on file
== END 2024-10-12 15:13 | disposition home or self-care (01) ==
LOC: HO.HOP 14:57
PROVIDERS: PCP Nurse Practitioner Primary Care; Visit Provider Psychiatry & Neurology Psychiatry
DX: F41.1 Generalized anxiety disorder (principal); F31.81 Bipolar II disorder
CPT/HCPCS: 90833; 99213

== ENCOUNTER → 2024-10-12 14:57 | Outpatient (BNVA) | payer MEDICARE, BC, SELFPAY | PROVIDERS: PCP Nurse Practitioner Primary Care; Visit Provider Psychiatry & Neurology Psychiatry | DX: F41.1 Generalized anxiety disorder (principal); F31.81 Bipolar II disorder | CPT/HCPCS: 99212 ==

== ENCOUNTER 2025-01-19 13:17 | Outpatient (AMB) | payer MEDICARE, BC, SELFPAY ==
--- OUTSIDE RECORDS SUMMARY | 2025-01-19 13:53 | XMS_ITS | Clinical Summary ---
[facility] Address [address] [place] [address] Care Team Providers Care Rubber Compounder Name Role Phone Unavailable Primary Care Provider Unavailabl e Social History Tobacco Use Types Packs/Day Years Used Date Smoking Tobacco: Never Assessed Sex and Gender Information Value Date Recorded Sex Assigned at Not on file Gender Identity Not on file Sexual Orientation Not on file Plan of Treatment Not on file
--- OUTSIDE RECORDS SUMMARY | 2025-01-19 13:53 | XMS_ITS | Continuity of Care Document ---
Author Organization [facility] [address] [facility] [address] [place] [address] Phone [phone] Care Team Providers Care Associate Director Regulatory Affairs Name Role Phone Eduin Johnston M.D. Care Team Information Receive r [phone] Problems Active Problems Provider Date Pituitary adenoma [...] Social History Type Date Description Comments Sex Male Sex Unknown ETOH Use Occasionally consumes wine Tobacco Use Start: Unknown Patient has never smoked Allergies and adverse reactions Active Allergies Criticality Reaction Severity Comments Date Ativan Unable to assess criticality 09/05/2022 Medications Active Medications SIG Qnty Indications Ordering Provider Date Tnxikpyktwmbe8tu Tablets 1 tablet by mouth at 11 pm prior to blood work 1tachinmay Palacios M.D. 09/13/2024 Mtkfbvcka85fw Tablets Take 1 Tablet By Mouth Every Day Christian Walters M.D. Wubwlnqgbla223oa Tablets Take 1 Tablet By Mouth Twice A Day Unknown Metoprolol Jgyflxrv38im Tablets Take 1 Tablet By Mouth Twice A Day Unknown Pantoprazole Iaxcdd90od Tablets DR Take 1 Tablet By Mouth Every Day Vinod Hyman M.D. Atorvastatin Lsfhmpo14dt Tablets Take 1 Tablet By Mouth Every Day Unknown Clonazepam0.5mg Tablets Take 1 Tablet By Mouth Twice A Day. May Take Half A Tablet Daily as Needed For A Unknown Nizyzxkjr35om Tablets ER 24HR 1 by mouth every day Edi Bonilla MD Vital Signs Date Vital Result Comment 09/07/2024 9:13am BP Systolic 120 mmHg BP Diastolic 76 mmHg Heart Rate 70 /min Height 67 inches 5'7 Weight 183.38 lb BMI (Body Mass Index) 28.7 kg/m2 Results Test Acquired Date Facility Test Result H/L Range Note Igf-1 With Z-Score 11/30/2024 [facility] Insulin-Like Growth Factor I 166 ng/mL 53-222 Igf-1, Z Score 0.9 S.D. -2.0 - +2.0 Prolactin 10/20/2024 [facility] Prolactin 8.5 ng/mL 3.6-25. 2 FSH, Serum 09/21/2024 [facility] FSH 10.8 mIU/mL 1.5-12. 4 1 Luteinizing Hormone(LH) 09/21/2024 [facility] Luteinizing Hormone(LH) 10.1 mIU/mL High 1.7-8.6 Dexamethasone, Serum 09/21/2024 [facility] Dexamethasone, Serum 447 ng/dL 2 Testosterone F/Wklybd+T LC/MS 09/21/2024 [facility] Testosterone, Total, LC/MS 291.2 ng/dL 264.0-9 16.0 3 Testost., % Free+Weakly Bound 27.7 % 9.0-46. 0 4 Testost., F+W Bound 80.7 ng/dL 40.0-25 0.0 Triiodothyronine (T3), Free 09/21/2024 [facility] Triiodothyronine (T3), Free 3.2 pg/mL 2.0-4.4 Thyroxine (T4) Free, Direct 09/21/2024 [facility] Thyroxine (T4) Free, Direct 1.27 ng/dL 0.82-1. 77 TSH 09/21/2024 [facility] TSH 1.990 uIU/mL 0.450-4 .500 Cortisol - Am 09/21/2024 [facility] Cortisol - Am 1.5 g/dL Low 6.2-19. 4 Cortisol 09/05/2023 [facility] Cortisol 9.8 g/dL 5 Free T4 09/05/2023 [facility] Free T4 1.20 ng/dL (0.70-1 .80) TSH With Reflex To FT4 09/05/2023 [facility] TSH With Reflex To FT4 1.54 uIU/mL (0.4-4. 2) Free T4 10/31/2022 [facility] Free T4 1.14 ng/dL (0.70-1 .80) TSH 10/31/2022 [facility] TSH 2.17 uIU/mL (0.4-4. 2) Cortisol 10/31/2022 [facility] Cortisol 10.8 g/dL 6 Free Testosterone 10/31/2022 [facility] Testosterone, Total, LC/MS 300.6 7 Percent Free Testosterone 3.07 8 Free Testostero ne, Equilibrium 9.23 9 1 Test(s) 797836-[id number] sterone, Total, LC/MS was developed and its performance characteristics determined by [facility]. It has not been cleared or approved by the Food and Drug Administration. 2 This test was develo ped and its performance characteristics determined by [facility]. It has not been cleared or approved by the Food and Drug Administration. Reference Range: Adults baseline: <30 8:00 AM following 1 mg dexamethasone previous evenin - 295 8:00 AM following 8 mg dexamethasone (4 x 2 mg doses) previous day: 1600 - 2850 3 This [facility] LC/MS-M S method is currently certified by the CDC Hormone Standardization Program (HoSt). Adult male reference interval is based on a population of healthy nonobese males (BMI <30) between 19 and 39 years old. dmitri Arriaga.al. JCEM 2017,102;9461-5587. PMID: 74061994. 4 This test was develo ped and its performance characteristics determined by [facility]. It has not been cleared or approved by the Food and Drug Administration. 5 Reference Range: 6-10 am: 6.0-18.4 ug/dL 4-8 pm: 2.7-10.5 ug/dL 6 Reference Range: 6-10 am: 6.0-18.4 ug/dL 4-8 pm: 2.7-10.5 ug/dL 7 Reference range: 264 .0 to 916.0 Unit: ng/dL (NOTE) This [facility] LC/MS-MS method is currently certified by the CDC Hormone Standardization Program (HoSt). Adult male reference interval is based on a population of healthy nonobese males (BMI <30) between 19 and 39 years old. Bart et.al. JCEM 2017,102;6542-6196. PMID: 51758746. This test was developed and its performance characteristics determined by [facility]. It has not been cleared or approved by the Food and Drug Administration. 8 Reference range: 1.5 0 to 4.20 Unit: % 9 Reference range: 5.0 0 to 21.00 Unit: ng/dL Test performed at [address] [address] [employer] Description No Information Available Encounters Type Date Location Provider Dx Diagnosis Office Visit 09/07/2024 9:00a Main Office DARRELL Hall D35.2 Benign neopla sm of pituitary gland Assessments Date Code Description Provider 09/07/2024 D35.2 Pituitary adenoma DARRELL Hauser Plan of Treatment Future Appointment(s):* 09/06/2025 9:00 am - Mariam Blanco NP at Main Office 09/05/2023 - Yefri Perez M.D.* D35.2 Pituitary adenoma * E78.00 Hypercholesterolemia * F31.9 Bipolar disorder * E78.5 Hyperlipidemia, unspecified * Z85.46 Personal history of malignant neoplasm of prostate Functional Status Description No Information Available Mental Status Description No Information Available Referrals Refer to Dr Reason for Referral Status Appt Avni Maloney PA Created [address] [place] [address] Drive [address] [place] [address] [phone] Yefri Perez M.D. Created [address] [place] [address] Drive [address] [place] [address] [phone]
--- OUTSIDE RECORDS SUMMARY | 2025-01-19 13:53 | XMS_ITS | Clinical Summary ---
Author Organization [address] Address [address] [place] [address] Phone Care Team Providers Care Cassandra Architect Name Role Phone Akiko Cantrell NP Primary Care Provider [phone] Medications atorvastatin (LIPITOR) 80 mg tablet TAKE 1 TABLET BY MOUTH EVERY DAY 90 tablet 07/28/2024 Active Encounters Date Type Department Care Team Description 01/03/2025 Telephone Internal Medicine - [address] [phone] Rica Loaiza RN from Last 3 Months Surgical History Surgery Date Site/Laterality Comments OTHER SURGICAL HISTORY 2007 PROCEDURE: VT LAPS SURG ENHS0GAE RPBIC RAD W/NRV SPARING ROBOT OTHER SURGICAL HISTORY 2003 PROCEDURE: VT NASAL/SINUS NDSC W/PARTIAL ETHMOIDECTOMY TONSILLECTOMY PROCEDURE: HISTORICAL TONSILLECTOMY HERNIA REPAIR PROCEDURE: HISTORICAL HERNIA REPAIR/ING APPENDECTOMY PROCEDURE: HISTORICAL APPENDECTOMY Medical History Medical History Date Comments Essential hypertension DX:Essent ial hypertension Hyperlipidemia DX:Hyperlipidemi a Family history of cardiovasc ular disease DX:Family history of cardiov ascular disease Crescendo angina (CMS/HCC V2 4, CMS/HCC V28) 08/01/2021 DX:Crescendo angina (HCC) Chronic kidney disease, stag e 3 (CMS/HCC V24, CMS/HCC V28) 09/30/2021 DX:Chronic kidney disease, stage 3 (HCC) CAD (coronary artery disease) 09/30/2021 DX :CAD (coronary artery disease) MAGDI (obstructive sleep apnea) DX :MAGDI (obstructive sleep apnea) Prostate carcinoma (CMS/HCC V24, CMS/HCC V28) DX:Prostate carcinoma (HCC) Osteoarthritis DX:Osteoarthriti s Family History Medical [...] 08/14/2027 08/14/2017 Zoster Vaccines Completed 12/19/2018, 10/01/2018 Abdominal Aortic Aneurysm (AAA) Screen Completed 03/30/2020 RSV Immunization Adult Patients Completed 09/01/2023 Pneumococcal Vaccine: 50+ Years Completed [...] age to complete this topic Meningococcal B Vaccine Aged Out No l onger eligible based on patient's age to complete this topic RSV Immunization Patients Under 20 months Aged Out No longer eligible based on patient's age to complete this topic Varicella Vaccines Aged Out No longer eligible based on patient's age to complete this topic Procedures Procedure Name Priority Date/Time Associated Diagnosis Comments US ABDOMEN AORTA SCR STUDY AAA Routine 03/30/2020 8:30 AM EDT Encounter for screening for cardiovascular disorders from Last 3 Months or Most Recently Relevant to Health Maintenance Results * US ABDOMEN AORTA SCR STUDY AAA (03/30/2020 8:30 AM EDT) Anatomical Region Laterality Modality Ultrasound 03/30/2020 7:12 AM EDT Narrative 03/30/2020 8:30 AM EDT [facility] Diagnostic Imaging Department [address] [place] [address] Patient: TOLU HERRERA Teo /Age/Sex: 1950 - 70 - M Unit#: [id number] Location/Status: [facility]/REG CLI Mnemonic/Ordering Site: [facility] Ordering Physician: SAHIL HYMAN MD US Abdomen Aorta Scr Study AAA - 03/30/20 - HISTORY: The patient is a 70-year-old male undergoing screening for abdominal aortic aneurysm. FINDINGS: Real-time ultrasonography of the abdominal aorta is performed. The suprarenal aorta is normal in caliber, measuring 3.0 x 3.0 cm. There is borderline fusiform dilatation of the proximal interphalangeal aorta, measuring 3.0 x 3.0 cm. The distal infrarenal aorta is of normal caliber, measuring 2.0 x 2.0 cm. The common iliac arteries are of normal caliber, with the right NIKOLAS measuring 1.3 cm and the left NIKOLAS also measuring 1.3 cm. IMPRESSION: There is borderline fusiform dilatation of the proximal infrarenal abdominal aorta, measuring 3.0 x 3.0 cm. Follow-up ultrasound examination in approximately 6 months is recommended to evaluate for stability of this finding. Code 12068 G9551 Dictating Physician: TOLU DINERO MD Electronically Signed by: TOLU DINERO MD Dic Date/Time: 03/30/20825 Sign date/Time: 03/30/20829 Procedure Note Tolu Dinero MD - 07/10/2022 [facility] Diagnostic Imaging Department [address] [place] [address] Patient: TOLU HERRERA/Age/Sex: 1950 - 70 - M Unit#: [id number] [facility]/Status[facility] Mnemonic/Ordering Site: [facility] Ordering Physician: SAHIL HYMAN MD US Abdomen Aorta Scr Study AAA - 03/30/20 - HISTORY: The patient is a 70-year-old male undergoing screening forabdominal aortic aneurysm. FINDINGS: Real-time ultrasonography of the abdominal aorta is performed.The suprarenal aorta is normal in caliber, measuring 3.0 x 3.0 cm. There is borderline fusiform dilatation of the proximal interphalangeal aorta,measuring 3.0 x 3.0 cm. The distal infrarenal aorta is of normal caliber, measuring2.0 x 2.0 cm. The common iliac arteries are of normal caliber, with the right CIAmeasuring 1.3 cm and the left NIKOLAS also measuring 1.3 cm. IMPRESSION: There is borderline fusiform dilatation of the proximalinfrarenal abdominal aorta, measuring 3.0 x 3.0 cm. Follow-up ultrasound examinationin approximately 6 months is recommended to evaluate for stability of thisfinding. Code 29106 G9551 Dictating Physician: TOLU DINERO MD Electronically Signed by: TOLU DINERO MD Dic Date/Time: 03/30/20825 Sign date/Time: 03/30/20829 us Sahil Hyman MD [facility] [place]EDURES Final Re sult from Last 3 Months or Most Recently Relevant to Health Maintenance Insurance MEDICARE [facility] Care Teams Cassandra Architect Relationship Specialty Start Date End Date Akiko Cantrell NP [address] [place] [address] PCP - General 08/09/22
--- NOTE | 2025-01-19 14:06 | MHC.OFFVISPS ---
Intake Intake Visit Reasons: depression Allergies lorazepam Adverse Reaction (Intermediate, Verified 11/13/22 13:48) Agitated HPI- Psychiatric Chief Complaint: depression HPI Narrative: Patient seen psychiatric follow-up. The patient's mood generally stable with some periods perhaps of hypomania where he gets involved in something and works till late. But no euphoria giddiness clear hyper activities associated with impulsivity euphoria. Patient with Lamictal b.i.d. Wellbutrin 100 mg daily low-dose clonazepam. No clear decreased need for sleep other associated manic symptoms. Patient doing better with his Past Psychiatric History: History of bipolar disorder was on lithium and Trileptal previously Mental Status Exam Mental Status Exam Narrative: Mental Status Exam Narrative: Appearance: Casually dressed Behavior: Cooperative appropriate psychomotor: Within normal limits Speech: Normal volume and prosody Thought proccess logical and goal-directed Thought content: focused on tx and issues with his son who has ADD concerns regarding possible hypomania Mood: ok Affect: Appropriate to mood SI:denies HI:denies VH/AH:none Delusions: None Insight/judgment: Good Memory/cog: No gross abn in evaluation alert and oriented logical Assessment and Plan Assessment & Plan (1) Generalized anxiety disorder: Status: Acute Code(s): F41.1 - Generalized anxiety disorder (2) Bipolar II disorder: Status: Acute Code(s): F31.81 - Bipolar II disorder Plan Hold Wellbutrin secondary to question of cycling could increase Lamictal other options would be Depakote low-dose patient not drinking Question some of patient's hyper focus may be more related to ADD ? Medications: On Hold bupropion HCl SR Hold Comment: Doctor's Order 100 mg PO DAILY 90 days 90 tabs 1RF Counseling and coordination of Care Medication management counseling: Effectiveness, Side effects and Dosing range Diagnosis and Prognosis Counseling: Adequacy of current interventions Details: I spent [30] minutes reviewing the record, seeing the patient and documenting in the medical record. Counseling provided to the patient/caregiver as outlined below. Addressed patient/caregiver concerns regarding current medication regime including effective adherence. Addressed patient/caregiver concerns regarding diagnosis and prognosis including accuracy of diagnosis, prognosis over time, impact of diagnosis. Addressed patient/caregiver concerns regarding impact of recent stressors. 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
== END 2025-01-19 14:39 | disposition home or self-care (01) ==
LOC: HO.HOP 13:17
PROVIDERS: PCP Nurse Practitioner Primary Care; Visit Provider Psychiatry & Neurology Psychiatry
DX: F41.1 Generalized anxiety disorder (principal); F31.81 Bipolar II disorder
CPT/HCPCS: 99214

== ENCOUNTER → 2025-01-19 13:17 | Outpatient (BNVA) | payer MEDICARE, BC, SELFPAY | PROVIDERS: PCP Nurse Practitioner Primary Care; Visit Provider Psychiatry & Neurology Psychiatry | DX: F41.1 Generalized anxiety disorder (principal); F31.81 Bipolar II disorder; Z79.899 Other long term (current) drug therapy | CPT/HCPCS: 99212 ==

== ENCOUNTER 2025-03-24 13:32 | Outpatient (REF) | payer MEDICARE, BC, SELFPAY ==
[2025-03-24 15:30] LABS: Iron 53 mcg/dL (45-160); Percent Iron Saturation 18 % (15-50); Total Iron Binding Capacity 298 mcg/dL (228-428); Unsaturated Iron Binding 245 ug/dL
[2025-03-30 11:38] LABS: Lamotrigine Lamictal 4.1 mcg/mL (2.5-15.0)
== END 2025-03-24 13:33 | disposition home or self-care (01) ==
LOC: HO.LAB 13:32
PROVIDERS: PCP Nurse Practitioner Family; Visit Provider Psychiatry & Neurology Psychiatry
DX: F31.81 Bipolar II disorder (principal); G25.81 Restless legs syndrome; F41.1 Generalized anxiety disorder
CPT/HCPCS: 36415; 80175; 83540; 99212

== ENCOUNTER 2025-03-24 13:32 | Outpatient (AMB) | payer MEDICARE, BC, SELFPAY ==
--- NOTE | 2025-03-24 13:35 | A.OFFPSYCH_ITS ---
Intake Intake Visit Reasons: depression Allergies lorazepam Adverse Reaction (Intermediate, Verified 11/13/22 13:48) Agitated HPI- Psychiatric Chief Complaint: depression HPI Narrative: Pt states has been doing well generally getting along better with his some restless leg at nite takes klonapin 0.5 hs lamictal 75 am 225 hs wellbutrin 100 sr daily. son has severe anxiety add problematic behavior. Very rare lack of attention cognitively he states has been stable. No significant medical changes Past Psychiatric History: History of bipolar disorder was on lithium and Trileptal previously Mental Status Exam Mental Status Exam Narrative: Mental Status Exam Narrative: Appearance: Casually dressed Behavior: Cooperative appropriate psychomotor: Within normal limits Speech: Normal volume and prosody Thought proccess logical and goal-directed Thought content: focused on tx and issues with his son who has ADD concerns regarding possible hypomania Mood: ok Affect: Appropriate to mood SI:denies HI:denies VH/AH:none Delusions: None Insight/judgment: Good Memory/cog: No gross abn in evaluation alert and oriented logical Assessment and Plan Assessment & Plan (1) Bipolar 2 disorder, major depressive episode: Status: Acute Code(s): F31.81 - Bipolar II disorder (2) Generalized anxiety disorder: Status: Acute Code(s): F41.1 - Generalized anxiety disorder Plan cont lamictal wellbutrin gabapentin 100-200 melatonin melatonin 2 mg both p.r.n. to help with insomnia. Patient denies any manic symptoms. That is he feels better generally question of restless legs discussed option of gabapentin reviewed risks benefits alternatives and side effects check iron level Medications: New gabapentin 100 - 200 mg (1 - 2 x 100 mg) PO BEDTIME 30 days PRN 60 caps 2RF restless leg gabapentin 100 - 200 mg (1 - 2 x 100 mg) PO BEDTIME PRN 60 caps 2RF restless leg 30 days Orders: Orders Lamotrigine Lamictal 03/24/25 F31.81 - Bipolar II disorder, G25.81 - Restless legs syndrome IRON PROFILE 03/24/25 F31.81 - Bipolar II disorder, G25.81 - Restless legs syndrome Counseling and coordination of Care Details: I spent [] minutes reviewing the record, seeing the patient and documenting in the medical record. Counseling provided to the patient/caregiver as outlined below. Addressed patient/caregiver concerns regarding current medication regime including effective adherence. Addressed patient/caregiver concerns regarding diagnosis and prognosis including accuracy of diagnosis, prognosis over time, impact of diagnosis. Addressed patient/caregiver concerns regarding impact of recent stressors. 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
--- OUTSIDE RECORDS SUMMARY | 2025-03-24 14:49 | XMS_ITS | Clinical Summary ---
Author Organization [address] Address [address] [place] [address] Phone Care Team Providers Care Nuclear Reactor Technician Name Role Phone Akiko Cantrell NP Primary Care Provider [phone] Medications atorvastatin (LIPITOR) 80 mg tablet TAKE 1 TABLET BY MOUTH EVERY DAY 90 tablet 07/28/2024 Active Encounters Date Type Department Care Team Description 02/02/2025 Telephone Internal Medicine - [address] [phone] Sri Quiroz, LORETA 01/03/2025 Telephone Internal Medicine - [address] [phone] Rica Loaiza, LORETA from Last 3 Months Surgical History Surgery Date Site/Laterality Comments OTHER SURGICAL HISTORY 2007 PROCEDURE: VT LAPS SURG [id number] RPBIC RAD W/NRV SPARING ROBOT OTHER SURGICAL [...] Panel) 06/29/2022 Colorectal Cancer Screening: Colonoscopy 06/29/2022 Falls Risk Assessment 06/29/2022 Hepatitis C Screening 06/29/2022 Medicare Annual Wellness Visit 06/29/2022 Social Influencers of Health Screening 06/29/2022 Hypertension/CHF/CAD Annual BMP Blood Test 06/30/2022 COVID-19 Vaccine (3 - Pfizer risk series) 05/31/2024 05/03/2024, 09/01/2023, 08/21/2023, Additional history exists Depression Screening 07/21/2024 Influenza Vaccine (#1) 2025 , 06/30/2023, 07/17/2022, Additional history exists DTaP,Tdap,and Td Vaccines (2 - Td or Tdap) 08/14/2027 08/14/2017 Zoster Vaccines Completed 12/19/2018, 10/01/2018 Abdominal Aortic Aneurysm (AAA) Screen Completed 03/30/2020 RSV Immunization Adult Patients Completed 09/01/2023 Pneumococcal Vaccine: 50+ Years Completed 09/06/2023, 08/27/2018, 08/12/2017 HIB Vaccines Aged Out No longer eligi [...] AM EDT Narrative 03/30/2020 8:30 AM EDT [facility] Diagnostic Imaging Department [address] [place] [address] Patient: TOLU HERRERA D.O.B./Age/Sex: 1950 - 70 - M Unit#: [id number] Location/Status: SPDIUS/REG CLI Mnemonic/Ordering Site: AAASCRST/SPUS Ordering Physician: SAHIL HYMAN MD US Abdomen [...] evaluate for stability of this finding. Code 27392 G9551 Dictating Physician: TOLU DINERO MD Electronically Signed by: TOLU DINERO MD Dic Date/Time: 03/30/20825 Sign date/Time: 03/30/20829 Procedure Note Tolu Dinero MD - 07/10/2022 [facility] Diagnostic Imaging Department [address] [place] [address] Patient: JAVIERTOLU Teo Ayala./Age/Sex: 1950 - 70 - M Unit#: [id number] Location/Status: SPDIUS/REG CLI Mnemonic/Ordering Site: AAASCRST/SPUS Ordering Physician: SAHIL HYMAN MD US Abdomen [...] to evaluate for stability of thisfinding. Code 82811 G9551 Dictating Physician: TOLU DINERO MD Electronically Signed by: TOLU DINERO MD Dic Date/Time: 03/30/20825 Sign date/Time: 03/30/20829 us Sahil Hyman MD [facility] US PROCEDURES Final Re sult from Last 3 Months or Most Recently Relevant to Health Maintenance Insurance MEDICARE [facility] Care Teams Nuclear Reactor Technician Relationship Specialty Start Date End Date Akiko Cantrell NP [address] [place] [address] PCP - General 08/09/22
--- OUTSIDE RECORDS SUMMARY | 2025-03-24 14:49 | XMS_ITS | Clinical Summary ---
Author Organization [facility] Address [address] [place] [address] Care Team Providers Care Basting Machine Operator Name Role Phone Unavailable Primary Care Provider Unavailabl e Social History Tobacco Use Types Packs/Day Years Used Date Smoking Tobacco: Never Assessed Sex and Gender Information Value Date Recorded Sex Assigned at Not on file Gender Identity Not on file Sexual Orientation Not on file Plan of Treatment Not on file
--- OUTSIDE RECORDS SUMMARY | 2025-03-24 14:49 | XMS_ITS ---
Author Name [facility] Organization Unknown Care Team Organization Name Specialty Phone Email Start Date End Da thierry [facility] 03/09/2025 [facility] 07/02/20232023
--- OUTSIDE RECORDS SUMMARY | 2025-03-24 14:49 | XMS_ITS | Continuity of Care Document ---
Author Organization [facility] [address] [place] [address] Phone [phone] Care Team Providers Care Sales Leader Name Role Phone Eduin Johnston M.D. Care Team Information Receive r [phone] Problems Active Problems Provider Date Pituitary adenoma [...] Medications SIG Qnty Indications Ordering Provider Date Mfjsndqaqrute0tx Tablets 1 tablet by mouth at 11 pm prior to blood work 1tachinmay Palacios M.D. 09/13/2024 Tsmgmhzlc36xk Tablets Take 1 Tablet By Mouth Every Day Christian Walters M.D. Qldixfgzeou159vn Tablets Take 1 Tablet By Mouth Twice A Day Unknown Metoprolol Vvrmywup85pc Tablets Take 1 Tablet By Mouth Twice A Day Unknown Pantoprazole Afhkqh89fm Tablets DR Take 1 Tablet By Mouth Every Day Vinod Hyman M.D. Atorvastatin Effwgfa18ba Tablets Take 1 Tablet By Mouth Every Day Unknown Clonazepam0.5mg Tablets Take 1 Tablet By Mouth Twice A Day. May Take Half A Tablet Daily as Needed For A Unknown Xdmyqpzww56lf Tablets ER 24HR 1 by mouth every [...] 1.5 g/dL Low 6.2-19. 4 Cortisol 09/05/2023 [facility] Cortisol 9.8 g/dL 5 Free T4 09/05/2023 [facility] Free T4 1.20 ng/dL (0.70-1 .80) TSH With Reflex To FT4 09/05/2023 [facility] TSH With Reflex To FT4 1.54 uIU/mL (0.4-4. 2) Free T4 10/31/2022 [facility] Free T4 1.14 ng/dL (0.70-1 .80) TSH 10/31/2022 [facility] TSH 2.17 uIU/mL (0.4-4. 2) Cortisol 10/31/2022 [facility] Cortisol 10.8 g/dL 6 Free Testosterone 10/31/2022 [facility] Testosterone, Total, LC/MS 300.6 7 Percent Free Testosterone 3.07 8 Free Testostero ne, Equilibrium 9.23 9 1 Test(s) 402066-Mjxcq sterone, Total, LC/MS was developed and its performance characteristics determined by [employer]. It has not been cleared or approved by the Food and Drug Administration. 2 This test was develo ped and its performance characteristics determined by [employer]. It has not been cleared or approved [...] and 39 years old. dmitri Arriaga.al. JCEM 2017,102;9392-7146. PMID: 63852518. 4 This test was develo ped and its performance characteristics determined by [employer]. It has not been cleared or approved by the Food and Drug Administration. 5 Reference Range: 6-10 am: 6.0-18.4 ug/dL 4-8 pm: 2.7-10.5 ug/dL 6 Reference Range: 6-10 am: 6.0-18.4 ug/dL 4-8 pm: 2.7-10.5 ug/dL 7 Reference range: 264 .0 to 916.0 Unit: ng/dL (NOTE) This [facility] LC/MS-MS method is currently certified by the CDC Hormone Standardization Program (HoSt). Adult male reference interval is based on a population of healthy nonobese males (BMI <30) between 19 and 39 years old. Bart et.al. JCEM 2017,102;1507-2435. PMID: 19895127. This test was developed and its performance characteristics determined by [employer]. It has not been cleared or approved by the Food and Drug Administration. 8 Reference range: 1.5 0 to 4.20 Unit: % 9 Reference range: 5.0 0 to 21.00 Unit: ng/dL Test performed at [address] [address] Medical Devices Description No Information Available Encounters [...] Referral Status Appt Avni Maloney PA Created [address] [place] [address] Drive [address] [place] [address] [phone] Yefri Perez M.D. Created [address] [place] [address] Drive [address] [place] [address] [phone]
== END 2025-03-24 14:09 | disposition home or self-care (01) ==
LOC: HO.HOP 13:32
PROVIDERS: PCP Nurse Practitioner Primary Care; Visit Provider Psychiatry & Neurology Psychiatry
DX: F31.81 Bipolar II disorder (principal); F41.1 Generalized anxiety disorder
CPT/HCPCS: 99214

== ENCOUNTER 2025-06-30 14:14 | Outpatient (AMB) | payer MEDICARE, BC, SELFPAY ==
--- NOTE | 2025-06-30 14:42 | A.OFFPSYCH_ITS ---
Intake Intake Visit Reasons: depression Allergies lorazepam Adverse Reaction (Intermediate, Verified 11/13/22 13:48) Agitated Medication List - Last Reconciled 06/30/25 by Nnamdi Ibarra MD atorvastatin 80 mg PO DAILY bupropion HCl SR 100 mg PO DAILY 90 days clonazepam 0.25 - 0.5 mg (0.5 - 1 x 0.5 mg) PO BEDTIME PRN 90 days ezetimibe 10 mg PO DAILY gabapentin 100 - 200 mg (1 - 2 x 100 mg) PO BEDTIME PRN 30 days lamotrigine 150 mg PO BID 90 days Lmefol Wb-xwcnko-cqP78-algal 6 mg-600 mg- 2 mg-90.314 mg (Cerefolin NAC (algal oil)) 1 tab PO DAILY metoprolol tartrate 50 mg PO BID mirabegron ER (Myrbetriq) 50 mg PO DAILY pantoprazole 40 mg PO DAILY HPI- Psychiatric Chief Complaint: depression Intake Note: Patient has a history of bipolar disorder returns with some increased anxiety and dysphoria. Patient gives consent to use of electronic scribe HPI Narrative: The patient presented with increased generalized anxiety and stress related to family issues, particularly concerning his son and granddaughters. Patient has a history of bipolar disorder with episodes of anxiety and depression. 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 The patient expressed having valid reasons for distress, including a recent situation involving drafting an affidavit against his son, who is attempting to change the parenting plan in a way the patient believes could harm his granddaughters. The patient mentioned having no interaction with his son since October 2023 and described the relationship as being effectively severed. The patient reported occasional flashes of depression, feeling helpless, and overwhelmed with no specific solution to the problems. The patient noted being overwhelmed by demands, including dealing with his 's worsening general anxiety disorder and his other son's financial and employment difficulties. The patient expressed feeling stressed about needing to manage multiple responsibilities. No medical changes noted BACKGROUND The patient did not report any new allergies or medications. The patient noted feeling overwhelmed and occasionally experiencing flashes of depression. Pt seen in psych f/u mood has been more anxious pt has bouts at times of depression feeling overwhelmed with demands on me . may be having cognitive impairment. Son moved back in who has add. Things are better with his getting along less friction. Past Psychiatric History: History of bipolar disorder was on lithium and Trileptal previously Mental Status Exam Mental Status Exam Narrative: Mental Status Exam Narrative: Appearance: Casually dressed Behavior: Cooperative appropriate psychomotor: Within normal limits Speech: Normal volume and prosody Thought proccess logical and goal-directed Thought content: focused on tx and issues with both sons frustrated that not more productive feels stressed and overwhelmed also with significant issues related son who be moving back in with him with chronic executive function difficulties also issues related to his son Chelsey with whom he is estranged. Mood: anxious . Affect: Appropriate to mood SI:denies HI:denies VH/AH:none Delusions: None Insight/judgment: Good Memory/cog: No gross abn in evaluation alert and oriented logical Recent cognitive testing shows no negative changes Assessment and Plan Assessment & Plan (1) Bipolar 2 disorder, major depressive episode: Status: Acute Code(s): F31.81 - Bipolar II disorder (2) Generalized anxiety disorder: Status: Acute Code(s): F41.1 - Generalized anxiety disorder Plan Patient is in regular counseling discussed strategies to decrease stress and issues related to his being more of an emotional thinker and the patient being more of a logician. This causes difficulty for the both of them discussed potential for someone to see both of them who might be able to help with the fact that they have very different cognitive styles. The higher functioning children have also help to intercede intake over some responsibility patient denies any manic symptoms decreased need for sleep state he does have periods of racing thoughts that appeared to be anxiety related. No impulsive agitated behavior continue Lamictal Wellbutrin monitor for cycling. . The patient's anxiety appears related to family conflicts and responsibilities. The patient's occasional depressive episodes may be linked to the overwhelming stress and perceived helplessness regarding his family situation. PLAN I discussed increasing the patient's lamotrigine dosage to 150 mg twice daily to help manage anxiety and reduce the need for Klonopin. The patient was advised to consider taking gabapentin at bedtime to aid with anxiety and restless leg syndrome. I recommended the patient explore neuropsychological testing and coaching for his son to address behavioral and functional challenges. The patient was encouraged to monitor his anxiety levels and use gabapentin as prescribed if necessary. We will follow up in August to assess the patient's response to the medication adjustments and overall mental health status. Medications: Refilled bupropion HCl SR 100 mg PO DAILY 90 tabs 1RF 90 days Discontinued Lmefol Md-sberxf-kcG98-algal 6 mg-600 mg- 2 mg-90.314 mg Discontinued Reason: Patient Completed Course 1 tab PO DAILY 90 tabs 1RF Counseling and coordination of Care Details: I spent [] minutes reviewing the record, seeing the patient and documenting in the medical record. Counseling provided to the patient/caregiver as outlined below. Addressed patient/caregiver concerns regarding current medication regime including effective adherence. Addressed patient/caregiver concerns regarding diagnosis and prognosis including accuracy of diagnosis, prognosis over time, impact of diagnosis. Addressed patient/caregiver concerns regarding impact of recent stressors. 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
--- OUTSIDE RECORDS SUMMARY | 2025-06-30 21:45 | XMS_ITS | Continuity of Care Document ---
Author Organization [facility] [address] [place] [address] Phone [phone] Care Team Providers Care Food Service Director Name Role Phone Eduin Johnston M.D. Care Team Information Receive r [phone] Problems Active Problems Provider Date Pituitary adenoma [...] Medications SIG Qnty Indications Ordering Provider Date Pcbfbirhbcxwe8ls Tablets 1 tablet by mouth at 11 pm prior to blood work 1tachinmay Palacios M.D. 09/13/2024 Dbzexjnyd44ai Tablets Take 1 Tablet By Mouth Every Day Christian Walters M.D. Xccijfsksqd721pw Tablets Take 1 Tablet By Mouth Twice A Day Unknown Metoprolol Qzibnoap73js Tablets Take 1 Tablet By Mouth Twice A Day Unknown Pantoprazole Wlbexr63gi Tablets DR Take 1 Tablet By Mouth Every Day Vinod Hyman M.D. Atorvastatin Zgfbkji25hj Tablets Take 1 Tablet By Mouth Every Day Unknown Clonazepam0.5mg Tablets Take 1 Tablet By Mouth Twice A Day. May Take Half A Tablet Daily as Needed For A Unknown Hbzthardt06bi Tablets ER 24HR 1 by mouth every [...] 1.5 g/dL Low 6.2-19. 4 Cortisol 09/05/2023 [facility] Cortisol 9.8 g/dL 5 Free T4 09/05/2023 [facility] Free T4 1.20 ng/dL (0.70-1 .80) TSH With Reflex To FT4 09/05/2023 [facility] TSH With Reflex To FT4 1.54 uIU/mL (0.4-4. 2) Free T4 10/31/2022 [facility] Free T4 1.14 ng/dL (0.70-1 .80) TSH 10/31/2022 [facility] TSH 2.17 uIU/mL (0.4-4. 2) Cortisol 10/31/2022 [facility] Cortisol 10.8 g/dL 6 Free Testosterone 10/31/2022 [facility] Testosterone, Total, LC/MS 300.6 7 Percent Free Testosterone 3.07 8 Free Testostero ne, Equilibrium 9.23 9 1 Test(s) 917029-Cesfy sterone, Total, LC/MS was developed and its performance characteristics determined by [employer] [employer]. It has not been cleared or approved by the Food and Drug Administration. 2 This test was develo ped and its performance characteristics determined by [employer]. It has not been cleared or [...] and 40 years old. dmitri Arriaga.al. JCEM 2017,102;7572-2825. PMID: 22741768. 4 This test was develo ped and its performance characteristics determined by [facility] [employer]. It has not been cleared or approved by the Food and Drug Administration. 5 Reference Range: 6-10 am: 6.0-18.4 ug/dL 4-8 pm: 2.7-10.5 ug/dL 6 Reference Range: 6-10 am: 6.0-18.4 ug/dL 4-8 pm: 2.7-10.5 ug/dL 7 Reference range: 264 .0 to 916.0 Unit: ng/dL (NOTE) This [facility] LC/MS-MS method is currently certified by the CDC Hormone Standardization Program (HoSt). Adult male reference interval is based on a population of healthy nonobese males (BMI <30) between 19 and 39 years old. Bart et.al. JCEM 2017,102;2873-0107. PMID: 88339239. This test was developed and its performance characteristics determined by [employer]. It has not been cleared or approved by the Food and Drug Administration. 8 Reference range: 1.5 0 to 4.20 Unit: % 9 Reference range: 5.0 0 to 21.00 Unit: ng/dL Test performed at [address] [address] Medical Devices Description No Information Available Encounters [...] Referral Status Appt Avni Maloney PA Created [address] [place] [address] Drive [address] [place] [address] [phone] Yefri Perez M.D. Created [address] [place] [address] [address] [place] [address] [phone]
--- OUTSIDE RECORDS SUMMARY | 2025-06-30 21:45 | XMS_ITS | Clinical Summary ---
Author Organization [facility] Prior to 12/18/[address] [place] [address] Care Team Providers Care Diploma Pharmacy Technician Name Role Phone Unavailable Primary Care Provider Unavailabl e Social History Tobacco Use Types Packs/Day Years Used Date Smoking Tobacco: Never Assessed Sex and Gender Information Value Date Recorded Sex Assigned at Not on file Gender Identity Not on file Sexual Orientation Not on file Plan of Treatment Not on file
--- OUTSIDE RECORDS SUMMARY | 2025-06-30 21:45 | XMS_ITS | Clinical Summary ---
Author Organization [address] Building Address [address] [place] [address] Phone Care Team Providers Care Police Liaison Name Role Phone Akiko Cantrell NP Primary Care Provider [phone] Medications atorvastatin (LIPITOR) 80 mg tablet TAKE 1 TABLET BY MOUTH EVERY DAY 90 tablet 07/28/2024 Active Surgical History Surgery Date Site/Laterality Comments OTHER SURGICAL HISTORY 2007 PROCEDURE: [place] LAPS SURG [id number] RPBIC RAD W/NRV SPARING ROBOT OTHER SURGICAL HISTORY 2003 PROCEDURE: [place] NASAL/SINUS NDSC W/PARTIAL ETHMOIDECTOMY TONSILLECTOMY PROCEDURE: HISTORICAL TONSILLECTOMY HERNIA REPAIR PROCEDURE: HISTORICAL HERNIA REPAIR/ING APPENDECTOMY PROCEDURE: HISTORICAL APPENDECTOMY Medical History Medical History Date Comments Essential hypertension DX:Essent ial hypertension Hyperlipidemia DX:Hyperlipidemi a Family history of cardiovasc ular disease DX:Family history of cardiov ascular disease Crescendo angina ([facility] V2 4, [facility] V28) 08/01/2021 DX:Crescendo angina (HCC) Chronic kidney disease, stag e 3 (CMS/HCC V24, [facility] V28) 09/30/2021 DX:Chronic kidney disease, stage 3 (HCC) CAD (coronary artery disease) 09/30/2021 DX :CAD (coronary artery disease) MAGDI (obstructive sleep apnea) DX :MAGDI (obstructive sleep apnea) Prostate carcinoma (CMS/HCC V24, [facility] V28) DX:Prostate carcinoma (HCC) Osteoarthritis DX:Osteoarthriti s [...] on file Sexual Orientation Not on file Last Filed Vital Signs Vital Sign Reading [...] Health Maintenance Due Date Last Done Comments Colorectal Cancer Screening: Colonoscopy 1950 Cholesterol Screening (Lipid Panel) 06/29/2022 Falls Risk Assessment 06/29/2022 Hepatitis C Screening 06/29/2022 Medicare Annual Wellness Visit 06/29/2022 Social Influencers of Health Screening 06/29/2022 Hypertension/CHF/CAD Annual BMP Blood Test 06/30/2022 Depression Screening 07/21/2024 COVID-19 Vaccine ( season) 2025 05/03/2024, 09/01/2023, 08/21/2023, Additional history exists DTaP,Tdap,and Td Vaccines (3 - Td or Tdap) 01/10/2035 01/10/2025, 08/14/2017 Zoster Vaccines Completed 12/19/2018, 10/01/2018 Abdominal Aortic Aneurysm (AAA) Screen Completed 03/30/2020 RSV Immunization Adult Patients Completed 09/01/2023 Pneumococcal Vaccine: 50+ Years Completed 09/06/2023, 08/27/2018, 08/12/2017 Influenza Vaccine Completed 03/25/2025, , 06/30/2023, Additional history exists HIB Vaccines Aged Out [...] AM EDT Narrative 03/30/2020 8:30 AM EDT [facility] Diagnostic Imaging Department [address] [place] [address] Patient: TOLU HERRERA /Age/Sex: 1950 - 70 - M Unit#: [id number] [facility]/Ordering Site: [facility] Ordering Physician: SAHIL [...] evaluate for stability of this finding. Code 98138 [id number] Dictating Physician: TOLU DINERO MD Electronically Signed by: TOLU DINERO MD Dic Date/Time: 03/30/20825 Sign date/Time: 03/30/20829 Procedure Note Tolu Dinero MD - 07/10/2022 [facility] Diagnostic Imaging Department [address] [place], [place] [id number] Patient: TOLU HERRERA D.O.B./Age/Sex: 1950 - 70 - M Unit#: [id number] Location/Status: [facility]REG CLI Mnemonic/Ordering Site: [facility] Ordering Physician: SAHIL HYMAN MD US Abdomen [...] to evaluate for stability of thisfinding. Code 99395 [id number] Dictating Physician: TOLU DINERO MD Electronically Signed by: TOLU DINERO MD Dic Date/Time: 03/30/20825 Sign date/Time: 03/30/20829 us Sahil Hyman MD IM US PROCEDURES Final Re sult from Last 3 Months or Most Recently Relevant to Health Maintenance Insurance MEDICARE [facility] Care Teams Police Liaison Relationship Specialty Start Date End Date Akiko Cantrell NP [address] [facility] [place] [address] PCP - General 08/09/22
== END 2025-06-30 14:20 | disposition home or self-care (01) ==
LOC: HO.HOP 14:14
PROVIDERS: PCP Nurse Practitioner Family; Visit Provider Psychiatry & Neurology Psychiatry
DX: F31.81 Bipolar II disorder (principal); F41.1 Generalized anxiety disorder
CPT/HCPCS: 90833; 99213

== ENCOUNTER → 2025-06-30 14:14 | Outpatient (BNVA) | payer MEDICARE, BC, SELFPAY | PROVIDERS: PCP Nurse Practitioner Family; Visit Provider Psychiatry & Neurology Psychiatry | DX: F31.81 Bipolar II disorder (principal); F41.1 Generalized anxiety disorder | CPT/HCPCS: 99212 ==